=== PATIENT | male | born 1965 | race American Indian/Alaskan Native ===

== ENCOUNTER 2018-09-25 13:34 | Emergency (ER) | payer OTHER ==
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
[2018-09-25 14:05] VITALS: BP 130/81
--- NOTE | 2018-09-25 15:14 | XRay Report ---
CERVICAL SPINE, 3 views: History: Neck pain. Findings: The vertebral bodies, disk spaces, posterior elements and prevertebral soft tissues are unremarkable. The dens is intact. No acute fracture or malalignment is identified. Impression: 1. No evidence for acute injury to the cervical spine.
--- NOTE | 2018-09-25 15:15 | XRay Report ---
LUMBOSACRAL SPINE, 3 VIEWS: History: Back pain Findings: The vertebral bodies, disk spaces and posterior elements are intact. No compression deformity or malalignment. There is moderate disc space narrowing and circumferential spurring at L5-S1. The SI joints are symmetric and unremarkable. Impression: Moderate degenerative disc disease at L5-S1. No evidence for acute injury to the lumbar spine.
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
[2018-09-25] MEDS ORDERED: IBUPROFEN PO ONE (17:29)
[2018-09-25] MEDS ORDERED: FLEXERIL PO ONE (17:29)
[2018-09-25] MEDS ORDERED: FLEXERIL ONE (17:32)
[2018-09-25] MEDS ORDERED: IBUPROFEN ONE (17:33)
== END 2018-09-25 18:03 | disposition home or self-care (01) ==
LOC: ED 13:34
DX: S16.1XXA Strain of muscle, fascia and tendon at neck level, initial encounter (principal); S39.012A Strain of muscle, fascia and tendon of lower back, initial encounter; I10 Essential (primary) hypertension; V89.2XXA Person injured in unspecified motor-vehicle accident, traffic, initial encounter; Y93.89 Activity, other specified; Y92.488 Other paved roadways as the place of occurrence of the external cause; Y99.8 Other external cause status
CPT/HCPCS: 72040; 72100; 99284